=== PATIENT | female | born 1930 | race Caucasian/White ===

== ENCOUNTER 2016-12-01 18:26 | Emergency (ER) | payer OTHER ==
--- NOTE | 2016-12-01 20:22 | ED ORDER SUMMARY ---
..... Patient: DEYA SCOTT OrderSheet [facility] VisitID: [id number] [place] [address] 86y, F Registration Date/Time: 12/01/2016 ORDER SHEET Weight: 69.3 kg (estimated) Allergies: No Known Drug Allergy GENERAL ORDERS: CBC w Diff Urgent (18:46 12/01/2016 Kaykay Moser) (Ack 19:01 NHouse ER Tech1) (19:10 NHouse ER Tech1) CMP Urgent (18:46 12/01/2016 Kaykay Moser) (Ack 19:01 NHouse ER Tech1) (19:10 NHouse ER Tech1) PT with INR Urgent (18:46 12/01/2016 Kaykay Moser) (Ack 19:01 NHouse ER Tech1) (19:10 NHouse ER Tech1) PTT Urgent (18:46 12/01/2016 Kaykay Moser) (Ack 19:01 NHouse ER Tech1) (19:10 NHouse ER Tech1) MEDICATION ORDERS: Gelfoam 1 application (NOW) (18:46 12/01/2016 Kaykay Moser) (18:51 Ramiro R.N.) IV FLUIDS: ORDER SHEET NOTES: [Electronically signed by Harrison Morales R.N. (20:47 12/01/2016)] [Electronically signed by Joe Johnson Dr. (13:10 12/08/2016)] [Electronically locked/signed by Harrison Morales R.N. (20:47 12/01/2016)]
--- NOTE | 2016-12-01 20:22 | ED NURSING NOTES ---
Clinical Report - Nurses [facility] [address] [place] [address] 12/01/2016 18:26 Patient: DEYA SCOTT TRIAGE Triage time 18:32. Acuity: LEVEL 3. Chief Complaint: (Had dialysis today, post procedure, fistula in upper lt arm oozing and not stop bleeding.). Alert. No acute distress. SEPSIS SCREEN: Sepsis Screen: negative. Negative (no infection suspected/documented). --18:50 Carmina Mcintyre R.N. 18:32 12/01/16. BP: 139/124. HR: 60. RR: 18. O2 saturation: 95% on room air. Temp: 97.9 F. Pain level now: 5/10. --18:50 Carmina Mcintyre R.N. 18:32 12/01/16. BP: 139/124. HR: 60. RR: 18. O2 saturation: 95% on room air. Temp: 97.9 F. Pain level now: 5/10. --18:50 Carmina Mcintyre R.N. Weight: 69.3 kg estimated. Height/Length: 60 inches Per Patient. BMI: 29.8. --18:49 Carmina Mcintyre R.N. Medications [id number] PRN. Aranesp (Albumin Free) Injection 25mcg (IVP). Aspirin Oral (Tablet 81 mg) 2 tablets. Atorvastatin Calcium Oral 10 mg, daily. --18:46 Carmina Mcintyre R.N. Calcitriol Oral (Capsule 0.5 mcg) 1 capsule, D. Coreg CR Oral 25mg, BID. Cyclobenzaprine HCl Oral 10 mg, 3x a day. Docusate Calcium Oral 1, d. Ferrlecit Intravenous 125mg (IV QOWK2). Fluticasone Furoate Nasal 50mg, QD. Hydrocodone-Acetaminophen Oral (Tablet 5-325 mg), daily as needed. Iron Oral (Tablet 325 (65 Fe) mg) 1 tablet, daily. Isosorbide Mononitrate Oral 60mg, D. Levothyroxine Sodium Oral (Tablet 125 mcg) 1 tablet, daily. Lexapro Oral 10 mg, daily. Liquacel Liquid Protein 30ml 3x/week. Lisinopril Oral 10 mg, daily. Lyrica Oral (Capsule 50 mg) 1 capsule, QD. Omeprazole Oral 20 mg, daily. Ondansetron Oral 4 mg, daily. OxyCODONE HCl Oral 5 mg, as needed. --18:46 Carmina Mcintyre R.N. Sevelamer HCl Oral (Tablet 800 mg) 1 tablet, TID. Zofran Oral 4 mg, as needed. --18:46 Carmina Mcintyre R.N. Medication/allergy information source: the patient. --18:50 Carmina Mcintyre R.N. Allergies No Known Drug Allergy. --18:46 Carmina Mcintyre R.N. History Arrived by EMS. Historian: patient. This started today. 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 EMS treatment ORACLE APPLICATIONS DEVELOPER verbally communicated. See EMS report. BP: 136 / 112. HR: 64. RR: 20. O2 saturation: 96 % room air. PAST MEDICAL HX: Immunizations: status is unknown. The patient has had a hysterectomy. SOCIAL HX: Smoker- current status unknown. Occasional alcohol use. No drug use. FALL RISK ASSESSMENT: Fall risk assessment completed. No fall risk identified. NUTRITIONAL RISK ASSESSMENT: The nutritional risk assessment revealed no deficiencies. LEARNING NEEDS ASSESSMENT: The learning needs assessment revealed no barriers. FUNCTIONAL ASSESSMENT: Functional assessment performed: uses wheelchair. SKIN INTEGRITY ASSESSMENT: Skin integrity risk assessment completed. No skin integrity risk identified. JAMIE COMA SCORE: [place] Coma Scale: 15- eyes open spontaneously (4); best verbal response- oriented x 4 (5); best motor response- obeys commands (6). --18:50 Carmina Mcintyre R.N. PROBLEMS: Weakness. UTI - Urinary Tract Infection. CVA - Cerebrovascular Accident. Diabetes. ESRD. Neuropathy. Renal osteodystrophy. Hypothyroidism. Secondary Hyperparathyroidism of renal origin. Anemia-iron. Anemia-ESRD. GERD. GI Bleed. Hyperlipidemia. Hypertension-essential . Peripheral Vascular [place]. Bradycardia. --18:47 Carmina Mcintyre R.N. ADDITIONAL SURGERIES: Appendectomy. Fistula, for dialysis. Hysterectomy. --18:47 Carmina Mcintyre R.N. Interventions ID band on patient. To room. --18:50 Carmina Mcintyre R.N. PHYSICAL ASSESSMENT To room via stretcher. GENERAL / NEURO / PSYCH: Alert. Oriented X 4. Appears anxious. HEENT: Mucous membranes are pink. RESPIRATORY: Respirations not labored. CVS: Capillary refill less than 2 seconds. GI / : Abdomen nontender. SKIN: Skin intact. Skin is warm and dry. Normal skin turgor. --18:51 Carmina Mcintyre R.N. NURSING PROGRESS NOTES Patient gowned. Head of bed elevated. Two patient identifiers checked. Call light placed in reach. Side rails up x 2. Bed placed in lowest position. Brakes of bed on. Patient ready for evaluation. --18:51 Carmina Mcintyre R.N. 18:51 12/01/2016 GELFOAM Topical 1 application. Applied to the left upper arm. Allergies verified and confirmed 5 rights. --18:51 Carmina Mcintyre R.N. ( Patient attempting to call her daughter.). --19:03 Carmina Mcintyre R.N. DISPOSITION / DISCHARGE Departure time: 20:46. ( Pt was in a wheelchair that was her own. Pt was alert and oriented x 4. Pt denies any pain. She was with her daughter. Pt did not want her vital signs taken again for discharge.). No learning barriers present. Discharge instructions provided and reviewed with the patient and the patient left prior to discharge education being provided. Patient verbalized understanding. Written instructions provided in Khmer. The patient was discharged by the physician. She was discharged home and accompanied by family. She left the Emergency Department in a wheelchair and via private vehicle. Family member driving. --20:46 Harrison Morales R.N. Locked/Released at 12/01/2016 20:47 by Harrison Morales R.N.
--- NOTE | 2016-12-01 20:22 | ED NURSING NOTES ---
Clinical Report - Nurses [facility] [address] [place] [address] 12/01/2016 18:26 Patient: DEYA SCOTT TRIAGE Triage time 18:32. Acuity: LEVEL 3. Chief Complaint: (Had dialysis today, post procedure, fistula in upper lt arm oozing and not stop bleeding.). Alert. No acute distress. SEPSIS SCREEN: Sepsis Screen: negative. Negative (no infection suspected/documented). --18:50 Carmina Mcintyre R.N. 18:32 12/01/16. BP: 139/124. HR: 60. RR: 18. O2 saturation: 95% on room air. Temp: 97.9 F. Pain level now: 5/10. --18:50 Carmina Mcintyre R.N. 18:32 12/01/16. BP: 139/124. HR: 60. RR: 18. O2 saturation: 95% on room air. Temp: 97.9 F. Pain level now: 5/10. --18:50 Carmina Mcintyre R.N. Weight: 69.3 kg estimated. Height/Length: 60 inches Per Patient. BMI: 29.8. --18:49 Carmina Mcintyre R.N. Medications [id number] PRN. Aranesp (Albumin Free) Injection 25mcg (IVP). Aspirin Oral (Tablet 81 mg) 2 tablets. Atorvastatin Calcium Oral 10 mg, daily. --18:46 Carmina Mcintyre R.N. Calcitriol Oral (Capsule 0.5 mcg) 1 capsule, D. Coreg CR Oral 25mg, BID. Cyclobenzaprine HCl Oral 10 mg, 3x a day. Docusate Calcium Oral 1, d. Ferrlecit Intravenous 125mg (IV QOWK2). Fluticasone Furoate Nasal 50mg, QD. Hydrocodone-Acetaminophen Oral (Tablet 5-325 mg), daily as needed. Iron Oral (Tablet 325 (65 Fe) mg) 1 tablet, daily. Isosorbide Mononitrate Oral 60mg, D. Levothyroxine Sodium Oral (Tablet 125 mcg) 1 tablet, daily. Lexapro Oral 10 mg, daily. Liquacel Liquid Protein 30ml 3x/week. Lisinopril Oral 10 mg, daily. Lyrica Oral (Capsule 50 mg) 1 capsule, QD. Omeprazole Oral 20 mg, daily. Ondansetron Oral 4 mg, daily. OxyCODONE HCl Oral 5 mg, as needed. --18:46 Carmina Mcintyre R.N. Sevelamer HCl Oral (Tablet 800 mg) 1 tablet, TID. Zofran Oral 4 mg, as needed. --18:46 Carmina Mcintyre R.N. Medication/allergy information source: the patient. --18:50 Carmina Mcintyre R.N. Allergies No Known Drug Allergy. --18:46 Carmina Mcintyre R.N. History Arrived by EMS. Historian: patient. This started today. Treatment SHIP LOADER: (presure to the site.). EMS treatment SHIP LOADER verbally communicated. See EMS report. BP: 136 / 112. HR: 64. RR: 20. O2 saturation: 96 % room air. PAST MEDICAL HX: Immunizations: status is unknown. The patient has had a hysterectomy. SOCIAL HX: Smoker- current status unknown. Occasional alcohol use. No drug use. FALL RISK ASSESSMENT: Fall risk assessment completed. No fall risk identified. NUTRITIONAL RISK ASSESSMENT: The nutritional risk assessment revealed no deficiencies. LEARNING NEEDS ASSESSMENT: The learning needs assessment revealed no barriers. FUNCTIONAL ASSESSMENT: Functional assessment performed: uses wheelchair. SKIN INTEGRITY ASSESSMENT: Skin integrity risk assessment completed. No skin integrity risk identified. JAMIE COMA SCORE: [place] Coma Scale: 15- eyes open spontaneously (4); best verbal response- oriented x 4 (5); best motor response- obeys commands (6). --18:50 Carmina Mcintyre R.N. PROBLEMS: Weakness. UTI - Urinary Tract Infection. CVA - Cerebrovascular Accident. Diabetes. ESRD. Neuropathy. Renal osteodystrophy. Hypothyroidism. Secondary Hyperparathyroidism of renal origin. Anemia-iron. Anemia-ESRD. GERD. GI Bleed. Hyperlipidemia. Hypertension-essential . Peripheral Vascular [place]. Bradycardia. --18:47 Carmina Mcintyre R.N. ADDITIONAL SURGERIES: Appendectomy. Fistula, for dialysis. Hysterectomy. --18:47 Carmina Mcintyre R.N. Interventions ID band on patient. To room. --18:50 Carmina Mcintyre R.N. PHYSICAL ASSESSMENT To room via stretcher. GENERAL / NEURO / PSYCH: Alert. Oriented X 4. Appears anxious. HEENT: Mucous membranes are pink. RESPIRATORY: Respirations not labored. CVS: Capillary refill less than 2 seconds. GI / : Abdomen nontender. SKIN: Skin intact. Skin is warm and dry. Normal skin turgor. --18:51 Carmina Mcintyre R.N. NURSING PROGRESS NOTES Patient gowned. Head of bed elevated. Two patient identifiers checked. Call light placed in reach. Side rails up x 2. Bed placed in lowest position. Brakes of bed on. Patient ready for evaluation. --18:51 Carmina Mcintyre R.N. 18:51 12/01/2016 GELFOAM Topical 1 application. Applied to the left upper arm. Allergies verified and confirmed 5 rights. --18:51 Carmina Mcintyre R.N. ( Patient attempting to call her daughter.). --19:03 Carmina Mcintyre R.N. DISPOSITION / DISCHARGE Departure time: 20:46. ( Pt was in a wheelchair that was her own. Pt was alert and oriented x 4. Pt denies any pain. She was with her daughter. Pt did not want her vital signs taken again for discharge.). No learning barriers present. Discharge instructions provided and reviewed with the patient and the patient left prior to discharge education being provided. Patient verbalized understanding. Written instructions provided in Yakut. The patient was discharged by the physician. She was discharged home and accompanied by family. She left the Emergency Department in a wheelchair and via private vehicle. Family member driving. --20:46 Harrison Morales R.N. Locked/Released at 12/01/2016 20:47 by Harrison Morales R.N.
--- NOTE | 2016-12-01 20:22 | ED CLINICAL REPORT ---
Clinical Report - Physicians/Mid Levels [facility] [address] [place] [place] [address] 12/01/2016 18:26 Patient: DEYA SCOTT Arrived- By ambulance. Historian- patient and EMS personnel. HISTORY OF PRESENT ILLNESS Chief Complaint: bleeding fistula. This started today and is still present but is better now. It was abrupt in onset and has been constant but is not gone now. At its maximum, severity described as severe. When seen in the E.D., it was almost gone. Modifying factors- (relieved by pressure). Not worsened by anything. No loss of appetite or fatigue. Denies sleep problem. (went to dialysis today. completed course. after removal of cath, patient had persistent bleeding.). Similar symptoms previously: None. Recent medical care: Not recently seen/assessed. REVIEW OF SYSTEMS No skin rash. All systems otherwise negative, except as recorded above. PAST HISTORY See nurses notes. Medications: Sevelamer HCl Oral (Tablet 800 mg) 1 tablet, TID. Zofran Oral 4 mg, as needed. Calcitriol Oral (Capsule 0.5 mcg) 1 capsule, D. Coreg CR Oral 25mg, BID. Cyclobenzaprine HCl Oral 10 mg, 3x a day. Docusate Calcium Oral 1, d. Ferrlecit Intravenous 125mg (IV QOWK2). Fluticasone Furoate Nasal 50mg, QD. Hydrocodone-Acetaminophen Oral (Tablet 5-325 mg), daily as needed. Iron Oral (Tablet 325 (65 Fe) mg) 1 tablet, daily. Isosorbide Mononitrate Oral 60mg, D. Levothyroxine Sodium Oral (Tablet 125 mcg) 1 tablet, daily. Lexapro Oral 10 mg, daily. Liquacel Liquid Protein 30ml 3x/week. Lisinopril Oral 10 mg, daily. Lyrica Oral (Capsule 50 mg) 1 capsule, QD. Omeprazole Oral 20 mg, daily. Ondansetron Oral 4 mg, daily. OxyCODONE HCl Oral 5 mg, as needed. [id number] PRN. Aranesp (Albumin Free) Injection 25mcg (IVP). Aspirin Oral (Tablet 81 mg) 2 tablets. Atorvastatin Calcium Oral 10 mg, daily. Allergies: No Known Drug Allergy. SOCIAL HISTORY Never smoker. No alcohol use or drug use. No recent travel. Is a local resident. FAMILY HISTORY (no faml hx of bleeding problems). ADDITIONAL NOTES The nursing notes have been reviewed. PHYSICAL EXAM Vital Signs: 12/01/2016 18:32 BP: 139/124. HR: 60. RR: 18. O2 saturation: 95%. Temp: 97.9 F. Pain level now: 5/10. Appearance: Alert. No acute distress. Eyes: Pupils equal, round and reactive to light. Eyes normal inspection. No pale conjunctivae. ENT: Ears normal. Nose normal. Pharynx normal. Neck: Normal inspection. Neck supple. CVS: Normal heart rate and rhythm. Heart sounds normal. Pulses normal. Respiratory: No respiratory distress. Breath sounds normal. Chest nontender. Abdomen: No visible injury. Soft and nontender. Bowel sounds normal. No mass. Back: Normal inspection. Skin: Skin warm and dry. Normal skin color. No rash. Normal skin turgor. Extremities: Extremities exhibit normal ROM. No lower extremity edema. (av fistula to the LUE. small area of cath site with oozing dark red blood. no pulsatile bleeding. bleeding is mild. palpable thrill and neurovasc intact distally. no villa abnormalities, overlying skin changes, crepitus, or tenderness. compartments are soft.). LABS, X-RAYS, AND EKG Laboratory Tests: CBC w Diff: (JENNY: 12/01/2016 19:09) ( MsgRcvd 12/01/2016 20:27) Final results Test Result Flag Units (Reference) WHITE BLOOD COUNT 3.9 L K/uL (4.5-11.5) RED BLOOD COUNT 3.97 L M/uL (4.00-5.20) HEMOGLOBIN 10.9 L gm/dL (12.0-16.0) HEMATOCRIT 33.4 L % (36.0-46.0) MEAN CELL VOLUME 84 fL (80-100) MEAN CORPUSCULAR HGB 27 pg (26-34) MEAN CORPUSCULAR HGB CONC 33 g/dL (31-37) RED CELL DISTRIBUTION WIDTH 23.0 H % (11.6-14.8) PLATELET COUNT 145 L K/uL (150-400) LYMPH % 28.3 % (25-40) MONO % 9.7 % (3-14) GRANULOCYTE % 62.0 (53-90) RBC MORPHOLOGY 2+ ANISOCYTOSIS PT with INR: (JENNY: 12/01/2016 19:09) ( MsgRcvd 12/01/2016 19:46) Final results Test Result Flag Units (Reference) INR 1.1 (0.8-1.2) Low Intensity Therapy: INR 1.5-2.0 PT range 18.5-23.1Mod.Intensity Therapy: INR 2.0-3.0 PT range 23.1-31.5High Intensity Therapy: INR 2.5-3.5 PT range 27.4-35.5High Intensity Therapy 2: INR 3.0-4.0 PT range 31.5-39.3 APTT 33 SECONDS (24-34) CMP: (JENNY: 12/01/2016 19:09) ( MsgRcvd 12/01/2016 19:33) Final results Test Result Flag Units (Reference) GLUCOSE 106 mg/dL (70-110) BUN 20 H mg/dL (7-18) CREATININE 2.0 H mg/dL (0.6-1.3) Estimated GFR 25.17 mL/min Estimated GFR- 30.50 mL/min Note: Persistent reduction over 3 months in eGFR<60 mL/min/1.73 m2 defines CKD. Patients with eGFR values>=60 mL/min/1.73 m2 may also have CKD if evidence ofpersistent proteinuria. Additional information may be foundat www.kidney.org. SODIUM 139 mmol/L (136-145) POTASSIUM 4.2 mmol/L (3.5-5.1) CHLORIDE 101 mmol/L (98-107) CARBON DIOXIDE 33 H mmol/L (21-32) CALCIUM 7.7 L mg/dL (8.5-10.1) TOTAL PROTEIN 7.0 g/dL (6.4-8.2) ALBUMIN 3.3 g/dL (3.3-5.0) BILIRUBIN, TOTAL 0.4 mg/dL (0.0-1.0) ALKALINE PHOSPHATASE 246 H U/L (46-116) AST (SGOT) 27 U/L (15-37) ALT (SGPT) 23 U/L (12-78) . PROGRESS AND PROCEDURES Course of Care: The patietn is a 86 yo female with bleeding from dialysis site. Bleeding well controlled on arrival. only small amount of bleeding. surgicell applied and labs ordered. no signs of anemia. patient is hemodynamically stable. work up does not show any signs of acute massive hemorrhage. patient with baseline anemia per family. electrolytes are unremarkable. Bleeding has stopped in the ED. Patient educated on bleeding fistulas and how to stop them and whent to seek help. Discussed with patient work up, diagnosis, home care, follow up, and return precautions. All questions answered. The patient expressed understanding of these instructions and was agreeable to them. Do not feel patient needs further emergency department workup or admission to the hospital. Patient non-toxic and in no acute distress. Disposition: Discharged. Condition: good. CLINICAL IMPRESSION 12/01/2016 18:32 BP: 139/124. HR: 60. RR: 18. O2 saturation: 95%. Temp: 97.9 F. Pain level now: 5/10. Hypertensive. Oxygen saturation normal. AV fistula bleeding, acute resolved chronic kidney disease dialysis dependent chronic anemia. INSTRUCTIONS Warnings: GENERAL WARNINGS: Return or contact your physician immediately if your condition worsens or changes unexpectedly, if not improving as expected, or if other problems arise. Specifically return if pain, vomiting, bleeding, breathing difficulty or fever. Your Current Medications: CONTINUE TAKING THE FOLLOWING MEDICATIONS: [id number] PRN*. Aranesp (Albumin Free) Injection : 25mcg, IVP. Aspirin Oral : Tablet 81 mg, 2 tablets. Atorvastatin Calcium Oral : 10 mg daily. Calcitriol Oral : Capsule 0.5 mcg, 1 capsule D. Coreg CR Oral : 25mg BID. Cyclobenzaprine HCl Oral : 10 mg 3x a day. Docusate Calcium Oral : 1 d. Ferrlecit Intravenous : 125mg, IV QOWK2. Fluticasone Furoate Nasal : 50mg QD. Hydrocodone-Acetaminophen Oral : Tablet 5-325 mg, daily, prn. Iron Oral : Tablet 325 (65 Fe) mg, 1 tablet daily. Isosorbide Mononitrate Oral : 60mg D. Levothyroxine Sodium Oral : Tablet 125 mcg, 1 tablet daily. Lexapro Oral : 10 mg daily. Liquacel Liquid Protein 30ml 3x/week*. Lisinopril Oral : 10 mg daily. Lyrica Oral : Capsule 50 mg, 1 capsule QD. Omeprazole Oral : 20 mg daily. Ondansetron Oral : 4 mg daily. OxyCODONE HCl Oral : 5 mg, prn. Sevelamer HCl Oral : Tablet 800 mg, 1 tablet TID. Zofran Oral : 4 mg, prn. Follow-up: Return to the emergency department as needed. Follow up with your doctor in three days. Reason for referral: recheck today's concerns. Summary of care provided to patient via paper. Screening today revealed the patient's blood pressure to be in the hypertensive range. Blood pressure screening was not performed during this visit because the patient has an active diagnosis of hypertension. The patient should follow up with a primary care provider for blood pressure management. Understanding of the discharge instructions verbalized by patient. (Electronically signed by Joe Johnson Dr. 12/08/2016 13:10)
--- NOTE | 2016-12-01 20:22 | ED ORDER SUMMARY ---
..... Patient: DEYA SCOTT OrderSheet [facility] VisitID: [id number] [place] [address] 86y, F Registration Date/Time: 12/01/2016 ORDER SHEET Weight: 69.3 kg (estimated) Allergies: No Known Drug Allergy GENERAL ORDERS: CBC w Diff Urgent (18:46 12/01/2016 Kaykay Moser) (Ack 19:01 NHouse ER Tech1) (19:10 NHouse ER Tech1) CMP Urgent (18:46 12/01/2016 Kaykay Moser) (Ack 19:01 NHouse ER Tech1) (19:10 NHouse ER Tech1) PT with INR Urgent (18:46 12/01/2016 Kaykay Moser) (Ack 19:01 NHouse ER Tech1) (19:10 NHouse ER Tech1) PTT Urgent (18:46 12/01/2016 Kaykay Moser) (Ack 19:01 NHouse ER Tech1) (19:10 NHouse ER Tech1) MEDICATION ORDERS: Gelfoam 1 application (NOW) (18:46 12/01/2016 Kaykay Moser) (18:51 Ramiro R.N.) IV FLUIDS: ORDER SHEET NOTES: [Electronically signed by Harrison Morales R.N. (20:47 12/01/2016)] [Electronically signed by Joe Johnson Dr. (13:10 12/08/2016)] [Electronically locked/signed by Harrison Morales R.N. (20:47 12/01/2016)]
--- NOTE | 2016-12-08 13:10 | ED MED RECONCILIATION SUMMARY ---
Patient: DEYA SCOTT Medication Reconciliation Report [facility] VisitID: [id number] [place] [address] 86y, F Registration Date/Time: 12/01/2016 Weight: 69.3 kg Height/Length: 60 in. BMI: 29.8 ALLERGIES: No Known Drug Allergy The patient's Home Medications are listed below: CONTINUE TAKING THE FOLLOWING MEDICATIONS: [id number] PRN Aranesp (Albumin Free) Injection 25mcg, IVP Aspirin Oral (81 mg) 2 tablets Atorvastatin Calcium Oral 10 mg, daily Calcitriol Oral (0.5 mcg) 1 capsule, D Coreg CR Oral 25mg, BID Cyclobenzaprine HCl Oral 10 mg, 3x a day Docusate Calcium Oral 1, d Ferrlecit Intravenous 125mg, IV QOWK2 Fluticasone Furoate Nasal 50mg, QD Hydrocodone-Acetaminophen Oral (5-325 mg), daily Iron Oral (325 (65 Fe) mg) 1 tablet, daily Isosorbide Mononitrate Oral 60mg, D Levothyroxine Sodium Oral (125 mcg) 1 tablet, daily Lexapro Oral 10 mg, daily Liquacel Liquid Protein 30ml 3x/week Lisinopril Oral 10 mg, daily Lyrica Oral (50 mg) 1 capsule, QD Omeprazole Oral 20 mg, daily Ondansetron Oral 4 mg, daily OxyCODONE HCl Oral 5 mg Sevelamer HCl Oral (800 mg) 1 tablet, TID Zofran Oral 4 mg The source(s) of the original Home Medication information: patient The following Medications were given to the patient in the Emergency Department: GELFOAM Topical 1 application, administered: 12/01/2016 6:51:00 PM The following Medications were prescribed to the patient: None.
--- NOTE | 2016-12-08 13:10 | ED MAR SUMMARY ---
..... Medication Administration Record [facility] [address] [place] [address] Patient: DEYA SCOTT Visit ID: [id number] 86y, F Weight: 69.3 kg Height/Length: 60 in BMI: 29.8 ALLERGIES: No Known Drug Allergy Given 18:51 12/01/2016 Carmina Mcintyre R.N. Medication Administered: GELFOAM, Dose: 1 application Topical. Medication Ordered: Gelfoam 1 application (NOW).
--- NOTE | 2016-12-08 13:10 | ED MAR SUMMARY ---
..... Medication Administration Record [facility] [address] [place] [address] Patient: DEYA SCOTT Visit ID: [id number] 86y, F Weight: 69.3 kg Height/Length: 60 in BMI: 29.8 ALLERGIES: No Known Drug Allergy Given 18:51 12/01/2016 Carmina Mcintyre R.N. Medication Administered: GELFOAM, Dose: 1 application Topical. Medication Ordered: Gelfoam 1 application (NOW).
--- NOTE | 2016-12-08 13:10 | ED DISCHARGE INSTRUCTIONS ---
Patient: DEYA SCOTT General Instructions [facility] VisitID: [id number] [place] [address] 86y, F Registration Date/Time: 12/01/2016 12/01/2016 18:32 BP: 139/124. HR: 60. RR: 18. O2 saturation: 95%. Temp: 97.9 F. Pain level now: 5/10. Hypertensive. Oxygen saturation normal. AV fistula bleeding, acute resolved chronic kidney disease dialysis dependent chronic anemia. INSTRUCTIONS Warnings: GENERAL WARNINGS: Return or contact your physician immediately if your condition worsens or changes unexpectedly, if not improving as expected, or if other problems arise. Specifically return if pain, vomiting, bleeding, breathing difficulty or fever. Your Current Medications: CONTINUE TAKING THE FOLLOWING MEDICATIONS: [id number] PRN*. Aranesp (Albumin Free) Injection : 25mcg, IVP. Aspirin Oral : Tablet 81 mg, 2 tablets. Atorvastatin Calcium Oral : 10 mg daily. Calcitriol Oral : Capsule 0.5 mcg, 1 capsule D. Coreg CR Oral : 25mg BID. Cyclobenzaprine HCl Oral : 10 mg 3x a day. Docusate Calcium Oral : 1 d. Ferrlecit Intravenous : 125mg, IV QOWK2. Fluticasone Furoate Nasal : 50mg QD. Hydrocodone-Acetaminophen Oral : Tablet 5-325 mg, daily, prn. Iron Oral : Tablet 325 (65 Fe) mg, 1 tablet daily. Isosorbide Mononitrate Oral : 60mg D. Levothyroxine Sodium Oral : Tablet 125 mcg, 1 tablet daily. Lexapro Oral : 10 mg daily. Liquacel Liquid Protein 30ml 3x/week*. Lisinopril Oral : 10 mg daily. Lyrica Oral : Capsule 50 mg, 1 capsule QD. Omeprazole Oral : 20 mg daily. Ondansetron Oral : 4 mg daily. OxyCODONE HCl Oral : 5 mg, prn. Sevelamer HCl Oral : Tablet 800 mg, 1 tablet TID. Zofran Oral : 4 mg, prn. Follow-up: Return to the emergency department as needed. Follow up with your doctor in three days. Reason for referral: recheck today's concerns. Summary of care provided to patient via paper. Screening today revealed the patient's blood pressure to be in the hypertensive range. Blood pressure screening was not performed during this visit because the patient has an active diagnosis of hypertension. The patient should follow up with a primary care provider for blood pressure management. Understanding of the discharge instructions verbalized by patient. (Electronically signed by Joe Johnson Dr. 12/08/2016 13:10)
--- NOTE | 2016-12-08 13:10 | ED MED RECONCILIATION SUMMARY ---
Patient: DEYA SCOTT Medication Reconciliation Report [facility] VisitID: [id number] [place] [address] 86y, F Registration Date/Time: 12/01/2016 Weight: 69.3 kg Height/Length: 60 in. BMI: 29.8 ALLERGIES: No Known Drug Allergy The patient's Home Medications are listed below: CONTINUE TAKING THE FOLLOWING MEDICATIONS: [id number] PRN Aranesp (Albumin Free) Injection 25mcg, IVP Aspirin Oral (81 mg) 2 tablets Atorvastatin Calcium Oral 10 mg, daily Calcitriol Oral (0.5 mcg) 1 capsule, D Coreg CR Oral 25mg, BID Cyclobenzaprine HCl Oral 10 mg, 3x a day Docusate Calcium Oral 1, d Ferrlecit Intravenous 125mg, IV QOWK2 Fluticasone Furoate Nasal 50mg, QD Hydrocodone-Acetaminophen Oral (5-325 mg), daily Iron Oral (325 (65 Fe) mg) 1 tablet, daily Isosorbide Mononitrate Oral 60mg, D Levothyroxine Sodium Oral (125 mcg) 1 tablet, daily Lexapro Oral 10 mg, daily Liquacel Liquid Protein 30ml 3x/week Lisinopril Oral 10 mg, daily Lyrica Oral (50 mg) 1 capsule, QD Omeprazole Oral 20 mg, daily Ondansetron Oral 4 mg, daily OxyCODONE HCl Oral 5 mg Sevelamer HCl Oral (800 mg) 1 tablet, TID Zofran Oral 4 mg The source(s) of the original Home Medication information: patient The following Medications were given to the patient in the Emergency Department: GELFOAM Topical 1 application, administered: 12/01/2016 6:51:00 PM The following Medications were prescribed to the patient: None.
== END 2016-12-01 20:47 | disposition home or self-care (01) ==
LOC: ED SRH 18:26
DX: T82.838A Hemorrhage due to vascular prosthetic devices, implants and grafts, initial encounter (principal); Z86.73 Personal history of transient ischemic attack (TIA), and cerebral infarction without residual deficits; N18.9 Chronic kidney disease, unspecified; D64.9 Anemia, unspecified; I10 Essential (primary) hypertension; E11.9 Type 2 diabetes mellitus without complications; K21.9 Gastro-esophageal reflux disease without esophagitis; Z79.899 Other long term (current) drug therapy; Z79.82 Long term (current) use of aspirin; Z99.2 Dependence on renal dialysis
CPT/HCPCS: 90074; 90100; 94001; 94060; 95059